=== PATIENT | male | born 1980 | race Caucasian/White ===

== ENCOUNTER 2021-08-05 06:05 | Emergency (ER) | payer SELFPAY ==
[~2021-08-05] VITALS: Ht 172.7 cm; Wt 93.0 kg
[2021-08-05 06:09] VITALS: BP 141/100
--- NOTE | 2021-08-05 06:11 | NUR ---
patient ambulated to bed 10
--- NOTE | 2021-08-05 06:16 | NUR ---
40 yo m bib self with c/c left facial swelling since last night. patient woke up to it. denies any recent trauma or injury. denies taking any medication. 07/19 pain-- difficulty talking. patient broke tooth 2mths ago on the left side of the jaw. pmh: htn allergies: tetracycline
[2021-08-05 06:26] VITALS: BP 141/100
--- NOTE | 2021-08-05 06:26 | NUR ---
pt left without being seen by ermd.
== END 2021-08-05 06:26 | disposition left against medical advice (07) ==
LOC: MED 06:05
DX: R22.0 Localized swelling, mass and lump, head (principal); Z53.21 Procedure and treatment not carried out due to patient leaving prior to being seen by health care provider